=== PATIENT | male | born 1995 | race Caucasian/White ===

== ENCOUNTER 2017-08-11 11:58 | Emergency (ER) | payer OTHER ==
[~2017-08-11] VITALS: Ht 180.3 cm; Wt 77.1 kg
[~2017-08-11 11:58] MED LIST: ACCUNEB SO1.25 MG/1 INH
== END 2017-08-11 14:06 | disposition home or self-care (01) ==
LOC: ER 11:58
DX: S61.215A Laceration without foreign body of left ring finger without damage to nail, initial encounter (principal); W25.XXXA Contact with sharp glass, initial encounter; Y93.89 Activity, other specified; Y92.89 Other specified places as the place of occurrence of the external cause; Y99.0 Civilian activity done for income or pay